=== PATIENT | female | born 1970 | race Two or more races ===

== ENCOUNTER → 2018-10-09 | Outpatient (CLI) | payer OTHER ==
[~2018-10-09] MED LIST: DIGO125T PO; ENOX60SY4 SC; METO25TA35 PO; WARF-36 PO
[2018-10-09 15:15] LABS: BASOPHILS # (AUTO) 0.03 x10^3/uL (0-0.1); BASOPHILS % (AUTO) 1 % (0-1); EOSINOPHILS # (AUTO) 0.04 x10^3/uL (0-0.4); EOSINOPHILS % (AUTO) 1 % (1-7); LYMPHOCYTES # (AUTO) 1.11 x10^3/uL (1-3.4); LYMPHOCYTES % (AUTO) 19 % (22-44); MD NO; MEAN CORPUSCULAR HEMOGLOBIN 23.8 pg (27.0-34.8); MEAN CORPUSCULAR HGB CONC 30.9 g/dL (32.4-35.8); MEAN CORPUSCULAR VOLUME 77.1 fL (80-100); MEAN PLATELET VOLUME 8.5 fL (7.4-10.4); MONOCYTES # (AUTO) 0.53 x10^3/uL (0.2-0.8); MONOCYTES % (AUTO) 9 % (2-9); NEUTROPHILS # (AUTO) 4.01 x10^3/uL (1.8-6.8); NEUTROPHILS % (AUTO) 70 % (42-75); PLATELET COUNT 284 x10^3/uL (130-400); RED BLOOD COUNT 4.21 x10^6/uL (3.82-5.3); RED CELL DISTRIBUTION WIDTH 17.2 % (9.6-15.2)
[2018-10-09 15:27] LABS: ALANINE AMINOTRANSFERASE 36 U/L (12-78); ALBUMIN 4.1 g/dL (3.4-5.0); ANION GAP 5 mmol/L (5-15); CALCIUM 9.4 mg/dL (8.5-10.1); CHLORIDE 109 mmol/L (98-107); CREATININE 0.67 mg/dL (0.55-1.02)
[2018-10-09 15:28] LABS: MICROSCOPIC AUTO
[2018-10-09 15:29] LABS: ALKALINE PHOSPHATASE 75 U/L (45-117); BILIRUBIN,TOTAL 0.3 mg/dL (0.2-1.0); TOTAL PROTEIN 8.3 g/dL (6.4-8.2)
[2018-10-09 15:31] LABS: CULTURE INDICATED? YES
== END | disposition home or self-care (01) ==
LOC: STAR 13:57
PROVIDERS: ATTEND Obstetrics & Gynecology
DX: Z01.818 Encounter for other preprocedural examination (principal); I48.91 Unspecified atrial fibrillation; N93.9 Abnormal uterine and vaginal bleeding, unspecified
CPT/HCPCS: 36415; 80053; 81001; 85025; 87086; 93005

== ENCOUNTER 2018-10-17 06:59 | Inpatient (IN) | payer OTHER ==
[~2018-10-17] VITALS: Ht 162.6 cm; Wt 64.5 kg
[2018-10-17] MEDS ORDERED: LACTATED RINGERS 1,000 ML IV SCH (07:32)
[2018-10-17] MEDS ORDERED: FLUORESCEIN SODIUM 500 MG/5 ML ONE (07:37)
[2018-10-17] MEDS ORDERED: LIDOCAINE 1%, 20ML ONE (07:38)
[2018-10-17] MEDS ORDERED: EPINEPHRINE 1 MG/ML, 1ML ONE ×2 (07:38→10:58)
[2018-10-17] MEDS ORDERED: ACETAMINOPHEN 500 MG TABLET PO ONE (08:00)
[2018-10-17] MEDS ORDERED: SCOPOLAMINE PATCH, 1.5MG PATCH.TD72 TD ONE (08:00)
[2018-10-17] MEDS ORDERED: LIDOCAINE-MPF 1%, 2ML INFIL ONE (08:00)
[2018-10-17] MEDS ORDERED: GABAPENTIN 300 MG CAPSULE PO ONE (08:00)
[2018-10-17 08:18] VITALS: BP 113/78
[2018-10-17] MEDS ORDERED: MIDAZOLAM 1 MG/ML, 2ML ONE (08:30)
[2018-10-17] MEDS ORDERED: FENTANYL PF 250 MCG/5ML ONE ×2 (08:30→12:46)
[2018-10-17] MEDS ORDERED: NEOSTIGMINE 1 MG/ML, 10ML ONE (08:33)
[2018-10-17] MEDS ORDERED: PROPOFOL 10 MG/ML, 20ML ONE (08:33)
[2018-10-17] MEDS ORDERED: GLYCOPYRROLATE 0.2MG/1ML, 5ML ONE (08:33)
[2018-10-17] MEDS ORDERED: ONDANSETRON 2MG/ML, 2ML ONE (08:33)
[2018-10-17] MEDS ORDERED: DEXAMETHASONE 4 MG/ML, 1ML ONE (08:33)
[2018-10-17] MEDS ORDERED: ROCURONIUM 10MG/ML,5ML ONE (08:33)
[2018-10-17] MEDS ORDERED: CEFAZOLIN 1,000 MG ONE (08:33)
[2018-10-17] MEDS ORDERED: KETOROLAC 30 MG/1 ML ONE (08:34)
[2018-10-17] MEDS ORDERED: BUPIVACAINE/PF 0.25% ONE (10:58)
[2018-10-17] MEDS ORDERED: MEPERIDINE/PF 25MG/0.5ML IVPush PRN (11:30)
[2018-10-17] MEDS ORDERED: ONDANSETRON 2MG/ML, 2ML IV PRN (11:30)
[2018-10-17] MEDS ORDERED: HYDROmorphone 2 MG/ML, 1ML IVPush PRN (11:30)
[2018-10-17] MEDS ORDERED: LABETALOL 5MG/ML, 20ML IV PRN (11:30)
[2018-10-17] MEDS ORDERED: MORPHINE SULFATE 4 MG/ML, 1ML IVPush PRN (11:30)
[2018-10-17] MEDS ORDERED: HALOPERIDOL 5 MG/ML IV PRN (11:30)
[2018-10-17] MEDS ORDERED: ONDANSETRON ODT 8 MG PO PRN (11:30)
[2018-10-17] MEDS ORDERED: PROMETHAZINE 25 MG/ML, 1ML IM PRN ×2 (11:30)
[2018-10-17] MEDS ORDERED: OXYcodone 5 MG/5 ML ORAL.SOL UDC PO PRN ×2 (11:30→17:00)
[2018-10-17] MEDS ORDERED: PROMETHAZINE 25 MG/ML, 1ML IV PRN (11:30)
[2018-10-17] MEDS ORDERED: PROMETHAZINE 25 MG SUPP PR PRN (11:30)
[2018-10-17] MEDS ORDERED: PROMETHAZINE 12.5 MG SUPP PR PRN (11:30)
[2018-10-17] MEDS ORDERED: hydrALAzine 20 MG/ML, 1ML IV PRN (11:30)
[2018-10-17] MEDS ORDERED: FUROSEMIDE 20 MG/2 ML ONE (13:41)
[2018-10-17] MEDS ORDERED: FENTANYL PF 100 MCG/2ML ONE (14:55)
[2018-10-17] MEDS ORDERED: OXYcodone 5 MG/5 ML ORAL.SOL UDC ONE (14:55)
[2018-10-17] MEDS: FENTANYL PF 100 MCG/2ML IV PRN ×2 (14:56→15:03)
[2018-10-17] MEDS ORDERED: ACETAMINOPHEN 650 MG SUPP PR PRN ×2 (17:00)
[2018-10-17] MEDS ORDERED: HYDROmorphone 2 MG/ML, 1ML IV PRN (17:00)
[2018-10-17] MEDS ORDERED: OXYcodone/APAP 5/325MG TABLET PO PRN (17:00)
[2018-10-17] MEDS ORDERED: ACETAMINOPHEN 325 MG TABLET PO PRN (17:00)
[2018-10-17] MEDS: POTASSIUM CHLORIDE 20 MEQ in D5%-0.45% NACL 1,000 ML IV SCH (18:06)
[2018-10-17 19:05] VITALS: BP 105/57
[2018-10-17] MEDS: CEFAZOLIN PMX 1GM/50ML 50 ML IVPB SCH (20:03)
[2018-10-17] MEDS: IBUPROFEN 600 MG TABLET PO SCH (20:05)
[2018-10-17] MEDS: DOCUSATE 100 MG CAPSULE PO SCH (20:05)
[2018-10-17 22:04] LABS: BASOPHILS # (AUTO) 0.01 x10^3/uL (0-0.1); BASOPHILS % (AUTO) 0 % (0-1); EOSINOPHILS # (AUTO) 0.12 x10^3/uL (0-0.4); EOSINOPHILS % (AUTO) 1 % (1-7); LYMPHOCYTES # (AUTO) 0.39 x10^3/uL (1-3.4); LYMPHOCYTES % (AUTO) 4 % (22-44); MD NO; MEAN CORPUSCULAR HEMOGLOBIN 24.7 pg (27.0-34.8); MEAN CORPUSCULAR HGB CONC 32.1 g/dL (32.4-35.8); MEAN CORPUSCULAR VOLUME 76.9 fL (80-100); MEAN PLATELET VOLUME 8.5 fL (7.4-10.4); MONOCYTES # (AUTO) 0.14 x10^3/uL (0.2-0.8); MONOCYTES % (AUTO) 2 % (2-9); NEUTROPHILS # (AUTO) 8.31 x10^3/uL (1.8-6.8); NEUTROPHILS % (AUTO) 93 % (42-75); PLATELET COUNT 231 x10^3/uL (130-400); RED BLOOD COUNT 3.68 x10^6/uL (3.82-5.3); RED CELL DISTRIBUTION WIDTH 17.7 % (9.6-15.2)
[2018-10-17 23:42] VITALS: BP 99/65
[2018-10-18] VITALS (7 sets, daily range): BP systolic 84–99; BP diastolic 45–65
[2018-10-18] MEDS: POTASSIUM CHLORIDE 20 MEQ in D5%-0.45% NACL 1,000 ML IV SCH (03:50)
[2018-10-18] MEDS: CEFAZOLIN PMX 1GM/50ML 50 ML IVPB SCH (03:51)
[2018-10-18] MEDS: IBUPROFEN 600 MG TABLET PO SCH ×4 (05:23→20:25)
[2018-10-18] MEDS ORDERED: SODIUM CHLORIDE 0.9% 1,000ML IVBOLUS ONE (08:30)
[2018-10-18] MEDS: METOPROLOL TARTRATE 25 MG TABLET PO SCH (08:36)
[2018-10-18 08:39] LABS: BASOPHILS % (AUTO) 0 % (0-1); EOSINOPHILS % (AUTO) 0 % (1-7); LYMPHOCYTES # (AUTO) 0.56 x10^3/uL (1-3.4); LYMPHOCYTES % (AUTO) 6 % (22-44); MD NO; MEAN CORPUSCULAR HEMOGLOBIN 24.7 pg (27.0-34.8); MEAN CORPUSCULAR HGB CONC 31.6 g/dL (32.4-35.8); MEAN PLATELET VOLUME 8.8 fL (7.4-10.4); MONOCYTES # (AUTO) 0.45 x10^3/uL (0.2-0.8); MONOCYTES % (AUTO) 5 % (2-9); NEUTROPHILS # (AUTO) 7.91 x10^3/uL (1.8-6.8); NEUTROPHILS % (AUTO) 89 % (42-75); PLATELET COUNT 217 x10^3/uL (130-400); RED CELL DISTRIBUTION WIDTH 17.3 % (9.6-15.2)
[2018-10-18] MEDS: DOCUSATE 100 MG CAPSULE PO SCH ×2 (09:20→20:25)
[2018-10-18] MEDS ORDERED: WARFARIN MECH. VALVE PROTOCOL 2.5 to 3.5 XX PRN (10:00)
[2018-10-18 10:25] LABS: CHLORIDE 110 mmol/L (98-107)
[2018-10-18 10:32] LABS: % IRON SATURATION 4 % (20-55); ALANINE AMINOTRANSFERASE 32 U/L (12-78); ALBUMIN 3.4 g/dL (3.4-5.0); ALKALINE PHOSPHATASE 58 U/L (45-117); ANION GAP 6 mmol/L (5-15); BILIRUBIN,TOTAL 0.3 mg/dL (0.2-1.0); CALCIUM 8.2 mg/dL (8.5-10.1); CREATININE 0.64 mg/dL (0.55-1.02); IRON LEVEL 17 mcg/dL (50-170); TOTAL IRON BINDING CAPACITY 379 mcg/dL (250-450)
[2018-10-18 11:49] LABS: INTERNATIONAL NORMALIZED RATIO 1.05 (0.93-1.1)
[2018-10-18] MEDS: SODIUM CHLORIDE 0.9% 1,000 ML IV SCH ×2 (11:59→20:25)
[2018-10-18] MEDS ORDERED: WARFARIN 3 MG TABLET PO-COUM ONE (18:00)
[2018-10-19 02:29] VITALS: BP 107/70
[2018-10-19] MEDS: SODIUM CHLORIDE 0.9% 1,000 ML IV SCH ×3 (04:44→20:50)
[2018-10-19 05:12] LABS: INTERNATIONAL NORMALIZED RATIO 1.09 (0.93-1.1); PROTHROMBIN TIME 11.4 Seconds (9.6-11.5)
[2018-10-19 05:16] LABS: ANION GAP 4 mmol/L (5-15); CALCIUM 7.6 mg/dL (8.5-10.1); CHLORIDE 115 mmol/L (98-107); CREATININE 0.55 mg/dL (0.55-1.02)
[2018-10-19 05:22] LABS: BASOPHILS # (AUTO) 0.02 x10^3/uL (0-0.1); BASOPHILS % (AUTO) 0 % (0-1); EOSINOPHILS % (AUTO) 0 % (1-7); LYMPHOCYTES # (AUTO) 1.12 x10^3/uL (1-3.4); LYMPHOCYTES % (AUTO) 19 % (22-44); MD NO; MEAN CORPUSCULAR HEMOGLOBIN 24.6 pg (27.0-34.8); MEAN CORPUSCULAR HGB CONC 31.9 g/dL (32.4-35.8); MEAN CORPUSCULAR VOLUME 77.2 fL (80-100); MEAN PLATELET VOLUME 8.6 fL (7.4-10.4); MONOCYTES # (AUTO) 0.34 x10^3/uL (0.2-0.8); MONOCYTES % (AUTO) 6 % (2-9); NEUTROPHILS % (AUTO) 74 % (42-75); PLATELET COUNT 182 x10^3/uL (130-400); RED BLOOD COUNT 3.21 x10^6/uL (3.82-5.3); RED CELL DISTRIBUTION WIDTH 17.4 % (9.6-15.2)
[2018-10-19] MEDS: IBUPROFEN 600 MG TABLET PO SCH ×4 (05:26→20:49)
[2018-10-19 08:05] VITALS: BP 106/70
[2018-10-19] MEDS: METOPROLOL TARTRATE 25 MG TABLET PO SCH (09:00)
[2018-10-19] MEDS: DOCUSATE 100 MG CAPSULE PO SCH ×2 (09:30→20:49)
[2018-10-19 12:25] VITALS: BP 112/73
[2018-10-19] MEDS ORDERED: WARFARIN 10 MG TABLET PO-COUM ONE (18:00)
[2018-10-19 18:27] VITALS: BP 130/84
[2018-10-19] MEDS ORDERED: METOPROLOL TARTRATE 25 MG TABLET PO ONE (18:30)
[2018-10-19 20:29] VITALS: BP 116/75
[2018-10-20] VITALS (7 sets, daily range): BP systolic 95–114; BP diastolic 60–78
[2018-10-20] MEDS: IBUPROFEN 600 MG TABLET PO SCH ×4 (05:07→20:58)
[2018-10-20] MEDS: SODIUM CHLORIDE 0.9% 1,000 ML IV SCH ×3 (05:07→20:58)
[2018-10-20 06:05] LABS: INTERNATIONAL NORMALIZED RATIO 1.26 (0.93-1.1); PROTHROMBIN TIME 13.1 Seconds (9.6-11.5)
[2018-10-20] MEDS: DOCUSATE 100 MG CAPSULE PO SCH ×2 (08:17→20:58)
[2018-10-20] MEDS: METOPROLOL TARTRATE 25 MG TABLET PO SCH (08:17)
[2018-10-20] MEDS ORDERED: HEPARIN 25,000 UNITS/500ML PMX 500 ML IV PRN (11:00)
[2018-10-20] MEDS ORDERED: HEPARIN 5,000 UNITS/ML, 1ML IV ONE (11:30)
[2018-10-20 12:02] LABS: MEAN CORPUSCULAR HEMOGLOBIN 24.5 pg (27.0-34.8); MEAN CORPUSCULAR HGB CONC 31.5 g/dL (32.4-35.8); MEAN CORPUSCULAR VOLUME 77.6 fL (80-100); MEAN PLATELET VOLUME 8.5 fL (7.4-10.4); PLATELET COUNT 255 x10^3/uL (130-400); RED BLOOD COUNT 4.01 x10^6/uL (3.82-5.3); RED CELL DISTRIBUTION WIDTH 17.8 % (9.6-15.2)
[2018-10-20 12:19] LABS: BASOPHILS # (AUTO) 0.02 x10^3/uL (0-0.1); BASOPHILS % (AUTO) 0 % (0-1); EOSINOPHILS # (AUTO) 0.08 x10^3/uL (0-0.4); EOSINOPHILS % (AUTO) 1 % (1-7); LYMPHOCYTES # (AUTO) 0.98 x10^3/uL (1-3.4); LYMPHOCYTES % (AUTO) 17 % (22-44); MD MORPH REVIEW ONLY; MONOCYTES # (AUTO) 0.42 x10^3/uL (0.2-0.8); MONOCYTES % (AUTO) 7 % (2-9); NEUTROPHILS # (AUTO) 4.41 x10^3/uL (1.8-6.8); NEUTROPHILS % (AUTO) 75 % (42-75)
[2018-10-20 12:20] LABS: ANISOCYTOSIS 1+; HYPOCHROMIA 1+; OVALOCYTES 1+; POLYCHROMASIA 1+
[2018-10-20 12:21] LABS: <PLATELET ESTIMATE> ADEQUATE; <PLT MORPHOLOGY> NORMAL PLT MORPH; STOMATOCYTES 1+
[2018-10-20] MEDS: HEPARIN 25,000 UNITS/500ML PMX 500 ML IV PRN (12:52)
[2018-10-20] MEDS ORDERED: WARFARIN 10 MG TABLET PO-COUM ONE (18:00)
[2018-10-20] MEDS ORDERED: WARFARIN 2 MG TABLET PO-COUM ONE (18:00)
[2018-10-20] MEDS ORDERED: DIGOXIN 0.25 MG/ML, 2ML IVPush ONE ×2 (19:00→23:00)
[2018-10-21] VITALS (8 sets, daily range): BP systolic 92–122; BP diastolic 57–79
[2018-10-21 01:03] LABS: INTERNATIONAL NORMALIZED RATIO 1.59 (0.93-1.1); PROTHROMBIN TIME 16.4 Seconds (9.6-11.5)
[2018-10-21] MEDS: HEPARIN 5,000 UNITS/ML, 1ML IV PRN ×2 (01:17→14:10)
[2018-10-21] MEDS: METOPROLOL TARTRATE 25 MG TABLET PO SCH ×4 (05:11→23:58)
[2018-10-21] MEDS: IBUPROFEN 600 MG TABLET PO SCH ×4 (05:11→20:41)
[2018-10-21] MEDS: SODIUM CHLORIDE 0.9% 1,000 ML IV SCH (05:11)
[2018-10-21] MEDS ORDERED: DIGOXIN 0.125 MG TABLET PO SCH (09:00)
[2018-10-21] MEDS: DOCUSATE 100 MG CAPSULE PO SCH ×2 (09:11→20:41)
[2018-10-21] MEDS: HEPARIN 25,000 UNITS/500ML PMX 500 ML IV PRN (15:45)
[2018-10-21] MEDS ORDERED: WARFARIN 5 MG TABLET PO-COUM ONE (18:00)
[2018-10-22 02:56] LABS: INTERNATIONAL NORMALIZED RATIO 2.68 (0.93-1.1); PROTHROMBIN TIME 27.1 Seconds (9.6-11.5)
[2018-10-22 04:44] VITALS: BP 104/69
[2018-10-22 05:48] VITALS: BP 109/72
[2018-10-22] MEDS: METOPROLOL TARTRATE 25 MG TABLET PO SCH ×3 (05:51→17:46)
[2018-10-22] MEDS: IBUPROFEN 600 MG TABLET PO SCH ×3 (05:51→16:00)
[2018-10-22 06:44] VITALS: BP 103/65
[2018-10-22] MEDS: DOCUSATE 100 MG CAPSULE PO SCH (08:12)
[2018-10-22] MEDS ORDERED: DIGOXIN 0.125 MG TABLET PO SCH (09:00)
[2018-10-22 12:21] VITALS: BP 92/59
[2018-10-22 16:07] VITALS: BP 94/58
[2018-10-22] MEDS ORDERED: METO-282 PO (17:13)
[2018-10-22] MEDS ORDERED: METO25TA4 PO (17:36)
[2018-10-22] MEDS ORDERED: WARFARIN 5 MG TABLET PO-COUM ONE (18:00)
== END 2018-10-22 18:22 | disposition home or self-care (01) | DRG 742 ==
LOC: OUT 06:59 → 4NOR 16:01 → OUT 22:28 → 4NOR 22:29 → 4EST 10-18 00:19
PROVIDERS: ADMIT Obstetrics & Gynecology; ATTEND Obstetrics & Gynecology
PROC: 0UCF4ZZ Extirpation of Matter from Cul-de-sac, Percutaneous Endoscopic Approach (ICD-10-PCS; 2018-10-17)
PROC: 0U7C7ZZ Dilation of Cervix, Via Natural or Artificial Opening (ICD-10-PCS; 2018-10-17)
PROC: 0TJB8ZZ Inspection of Bladder, Via Natural or Artificial Opening Endoscopic (ICD-10-PCS; 2018-10-17)
PROC: 0UT9FZZ Resection of Uterus, Via Natural or Artificial Opening With Percutaneous Endoscopic Assistance (ICD-10-PCS; principal; 2018-10-17 10:00)
PROC: 0UT74ZZ Resection of Bilateral Fallopian Tubes, Percutaneous Endoscopic Approach (ICD-10-PCS; 2018-10-17 10:00)
DX: D25.9 Leiomyoma of uterus, unspecified (principal); D68.59 Other primary thrombophilia; N93.9 Abnormal uterine and vaginal bleeding, unspecified; I48.91 Unspecified atrial fibrillation; D64.9 Anemia, unspecified; I10 Essential (primary) hypertension; I95.9 Hypotension, unspecified; Z79.01 Long term (current) use of anticoagulants; Z87.891 Personal history of nicotine dependence; Z95.0 Presence of cardiac pacemaker; Z95.2 Presence of prosthetic heart valve; Z88.8 Allergy status to other drugs, medicaments and biological substances
CPT/HCPCS: 36415; J3490; 80048; 80053; 81025; 83540; 83550; 85025; 85520; 85610; 88307; 93005; G0378; J0171; J0690; J1100; J1644; J1885; J2250; J2405; J2704; J2710; J3010; J3480; J1160; J1940; J7030; J7120